=== PATIENT | male | born 1955 | race Caucasian/White ===

== ENCOUNTER 2020-07-01 13:55 | Outpatient (RCR) | payer MEDICARE, OTHER | END 2020-07-07 | LOC: PT 13:55 | PROVIDERS: ATTEND Orthopaedic Surgery | DX: Z98.890 Other specified postprocedural states (principal) ==

== ENCOUNTER 2020-07-09 15:55 | Outpatient (RCR) | payer OTHER | END 2020-08-07 | LOC: PT 15:55 | PROVIDERS: ATTEND Orthopaedic Surgery | DX: Z98.890 Other specified postprocedural states (principal); M62.81 Muscle weakness (generalized); R26.2 Difficulty in walking, not elsewhere classified; M25.562 Pain in left knee; M25.662 Stiffness of left knee, not elsewhere classified ==